=== PATIENT | female | born 1990 | race Caucasian/White ===

== ENCOUNTER 2018-10-23 06:41 | Emergency (ER) | payer MEDICAID, OTHER ==
[~2018-10-23] VITALS: Ht 162.6 cm; Wt 80.0 kg
[2018-10-23] MEDS ORDERED: FLUTICASONE PROPIONATE 50MCG/SPRAY BOTTLE BOTHNSTRLS STA (10:29)
[2018-10-23] MEDS ORDERED: ACETAMINOPHEN 325MG TABLET PO ONE (10:30)
[2018-10-23] MEDS ORDERED: BENZONATATE 100MG CAPSULE PO ONE (10:30)
[2018-10-23 12:20] VITALS: BP 108/56
== END 2018-10-23 12:25 | disposition home or self-care (01) ==
LOC: ER 07:58
DX: O98.512 Other viral diseases complicating pregnancy, second trimester (principal); B33.8 Other specified viral diseases; Z3A.18 18 weeks gestation of pregnancy
CPT/HCPCS: 99284